=== PATIENT | male | born 1940 | race Caucasian/White ===

== ENCOUNTER → 2017-08-27 | Outpatient (CLI) | payer MEDICARE ==
[2017-08-27 13:10] LABS: Blood Urea Nitrogen 16 mg/dL (9-20); Non-African American GFR(MDRD) >60 (>60 ml/min/1.73 sqM)
--- NOTE | 2017-08-27 14:36 | CT ---
EXAMINATION TYPE: CT abdomen pelvis w con DATE OF EXAM: 08/27/2017 COMPARISON: CT abdomen pelvis June 10, 2014 HISTORY: Bladder CA CT DLP: 681.4 mGycm, Automated Exposure Control for Dose Reduction was Utilized. CONTRAST: CT scan of the abdomen and pelvis is performed with oral and with IV Contrast, patient injected with 100 mL of Omnipaque 300. FINDINGS: LUNG BASES: There is some patchy right basilar atelectasis and/or scarring in the base. Previously vi sualized left lower lobe 7 mm nodule is outside Field of view on today's study. LIVER/GB: Scattered hypodense lesions throughout the liver most prominent left hepatic lobe felt to r eflect simple cysts are stable. Contracted gallbladder noted. PANCREAS: No significant abnormality is seen. SPLEEN: No significant abnormality is seen. ADRENALS: No significant abnormality is seen. KIDNEYS: There is symmetric cortical medullary uptake and excretion from both kidneys without evidenc e of suspicious new solid or cystic mass. No hydronephrosis is seen bilaterally. Bladder is adequatel y distended, there is new areas of abnormal wall thickening, superior aspect measures 11 mm on bernabe l image 51, right aspect measures 8 mm in thickness on coronal image 54. BOWEL: There is stable small hiatal hernia. Oral contrast does not reach colonic level. There is no s uspicious small or large bowel dilatation seen. There is some prominence of fecal material in the cec um. PROSTATE/SEMINAL VESICLES: Prostate gland is surgically absent. Numerous clips in the pelvis are note d. A few scattered pelvic phleboliths are seen. LYMPH NODES: No greater than 1cm abdominal or pelvic lymph nodes are appreciated. OSSEOUS STRUCTURES: Underlying dextroconvex scoliosis is present. There is spurring and disc space na rrowing redemonstrated left L1-L2 levels metallic hardware from right proximal femur surgery is parti ally imaged through healed fracture. Some sclerosis along the iliac portion of bilateral sacroiliac j oints is redemonstrated. OTHER: No significant additional abnormality is seen. IMPRESSION: New mild eccentric wall thickening in adequately distended bladder in patient with neopla sm, recurrent neoplasm cannot be excluded. Advised direct visualization with cystoscopy follow-up.
== END ==
LOC: RADCTMAIN 12:27
PROVIDERS: ATTEND Urology
DX: D09.0 Carcinoma in situ of bladder (principal)
CPT/HCPCS: 82565; 84520; 74177; 36415; Q9967

== ENCOUNTER 2017-12-03 13:27 | Observation (INO) | payer MEDICARE, OTHER ==
[2017-12-03] MEDS ORDERED: hydrALAZINE HCL 20 MG/ML 1 ML VIAL IVP STA (13:59)
[2017-12-03] MEDS ORDERED: SODIUM CHLORIDE 0.9% 500 ML IV STA (14:11)
[2017-12-03] MEDS ORDERED: HEPARIN SODIUM,PORCINE 5,000 UNIT/ML 1 ML VIAL IV ONE (14:12)
[2017-12-03] MEDS ORDERED: HEPARIN SOD,PORK IN 0.45% NACL 25,000 UNIT in 0.45% NACL 1 500ML.BAG IV SCH (14:15)
--- NOTE | 2017-12-03 14:16 | ED ---
General Adult HPI - General Chief complaint: Recheck/Abnormal Lab/Rx Stated complaint: Irregular heartbeat Time Seen by Provider: 12/03/17 13:30 Source: patient, RN notes reviewed Mode of arrival: wheelchair Limitations: no limitations - History of Present Illness Initial comments: This is a 77 year old male who presents emergency Department because he was told today that he had atrial fibrillation. Patient states he was in to have some sort of procedure done at the surgical center and they told me is in A. fib. Patient states she's had no symptoms. Patient denies chest pain difficulty breathing. Patient denies any weakness or fatigue. Patient denies any shortness of breath or difficulty breathing. Patient denies any recent fever chills or cough. Patient denies any palpitations. Patient denies headache patient denies lightheadedness dizziness or near syncopal episode. Patient denies any abdominal pain patient denies nausea vomiting or diarrhea. He is extremely fit for his age. - Related Data Home Medications Medication Instructions Recorded Confirmed Aspirin 81 mg PO HS 12/03/17 12/03/17 Bisoprolol-Hctz 5-6.25 mg [Ziac 1 tab PO DAILY 12/03/17 12/03/17 5-6.25] Fish Oil/Dha/Epa [Fish Oil 1,200 1 cap PO DAILY 12/03/17 12/03/17 mg Fish Oil] Valsartan/Hydrochlorothiazide 1 tab PO HS 12/03/17 12/03/17 [Valsartan-Hctz 160-25 mg Tab] Allergies Allergy/AdvReac Type Severity Reaction Status Date / Time No Known Allergies Allergy Verified 12/03/17 13:56 Review of Systems ROS Statement: Those systems with pertinent positive or pertinent negative responses have been documented in the HPI. ROS Other: All systems not noted in ROS Statement are negative. Past Medical History Past Medical History: Hypertension History of Any Multi-Drug Resistant Organisms: None Reported Past Surgical History: Orthopedic Surgery, Prostate Surgery Past Psychological History: No Psychological Hx Reported Smoking Status: Former smoker Past Alcohol Use History: Daily General Exam - General Exam Comments Initial Comments: GENERAL: Patient is well-developed and well-nourished. Patient is nontoxic and well- hydrated and is in no acute distress. ENT: Neck is soft and supple. No significant lymphadenopathy is noted. Oropharynx is clear. Moist mucous membranes. Neck has full range of motion without eliciting any pain. EYES: The sclera were anicteric and conjunctiva were pink and moist. Extraocular movements were intact and pupils were equal round and reactive to light. Eyelids were unremarkable. PULMONARY: Unlabored respirations. Good breath sounds bilaterally. No audible rales rhonchi or wheezing was noted. CARDIOVASCULAR: Patient has an irregular heartbeat. ABDOMEN: Soft and nontender with normal bowel sounds. No palpable organomegaly was noted. There is no palpable pulsatile mass. SKIN: Skin is clear with no lesions or rashes and otherwise unremarkable. NEUROLOGIC: Patient is alert and oriented x3. Cranial nerves II through XII are grossly intact. Motor and sensory are also intact. Normal speech, volume and content. Symmetrical smile. MUSCULOSKELETAL: Normal extremities with adequate strength and full range of motion. No lower extremity swelling or edema. No calf tenderness. LYMPHATICS: No significant lymphadenopathy is noted PSYCHIATRIC: Normal psychiatric evaluation. Normal interpersonal interactions appears functionally intact in deals appropriately with others. No signs of depression. No signs of anxiety. Limitations: no limitations Course Vital Signs 12/03/17 12/03/17 12/03/17 13:30 14:33 15:33 Temperature 97.7 F Pulse Rate 91 74 67 Respiratory 18 18 18 Rate Blood Pressure 189/103 167/98 173/110 O2 Sat by Pulse 99 98 98 Oximetry Medical Decision Making - Medical Decision Making EKG shows atrial fibrillation 79 bpm QRS is 90 QT intervals 386 QTC is 442. There is no ST segment elevation or depression. Chest x-ray shows no acute abnormality - Lab Data Result diagrams: 12/03/17 14:32 12/03/17 14:32 Lab Results 12/03/17 12/03/17 12/03/17 Range/Units 14:32 14:32 14:32 WBC 7.7 (3.8-10.6) k/uL RBC 5.46 (4.30-5.90) m/uL Hgb 16.7 (13.0-17.5) gm/dL Hct 50.8 (39.0-53.0) % MCV 93.0 (80.0-100.0) fL MCH 30.7 (25.0-35.0) pg MCHC 33.0 (31.0-37.0) g/dL RDW 14.7 (11.5-15.5) % Plt Count 224 (150-450) k/uL Neutrophils % 68 % Lymphocytes % 18 % Monocytes % 7 % Eosinophils % 4 % Basophils % 1 % Neutrophils # 5.2 (1.3-7.7) k/uL Lymphocytes # 1.4 (1.0-4.8) k/uL Monocytes # 0.6 (0-1.0) k/uL Eosinophils # 0.3 (0-0.7) k/uL Basophils # 0.1 (0-0.2) k/uL PT (9.0-12.0) sec INR (<1.2) APTT (22.0-30.0) sec Sodium 133 L (137-145) mmol/L Potassium 3.9 (3.5-5.1) mmol/L Chloride 100 (98-107) mmol/L Carbon Dioxide 23 (22-30) mmol/L Anion Gap 10 mmol/L BUN 19 (9-20) mg/dL Creatinine 0.76 (0.66-1.25) mg/dL Est GFR (MDRD) Af Amer >60 (>60 ml/min/1.73 sqM) Est GFR (MDRD) Non-Af >60 (>60 ml/min/1.73 sqM) Glucose 121 H (74-99) mg/dL Calcium 9.8 (8.4-10.2) mg/dL Magnesium 2.0 (1.6-2.3) mg/dL Total Bilirubin 1.1 (0.2-1.3) mg/dL AST 33 (17-59) U/L ALT 39 (21-72) U/L Alkaline Phosphatase 75 (38-126) U/L Total Creatine Kinase 210 H (55-170) U/L CK-MB (CK-2) 6.4 H* (0.0-2.4) ng/mL CK-MB (CK-2) Rel Index 3.0 Troponin I <0.012 (0.000-0.034) ng/mL Total Protein 7.1 (6.3-8.2) g/dL Albumin 4.2 (3.5-5.0) g/dL TSH 1.840 (0.465-4.680) mIU/L Free T4 1.05 (0.78-2.19) ng/dL Urine Opiates Screen (NotDetected) Ur Oxycodone Screen (NotDetected) Urine Methadone Screen (NotDetected) Ur Propoxyphene Screen (NotDetected) Ur Barbiturates Screen (NotDetected) U Tricyclic Antidepress (NotDetected) Ur Phencyclidine Scrn (NotDetected) Ur Amphetamines Screen (NotDetected) U Methamphetamines Scrn (NotDetected) U Benzodiazepines Scrn (NotDetected) Urine Cocaine Screen (NotDetected) U Marijuana (THC) Screen (NotDetected) 12/03/17 12/03/17 Range/Units 14:32 15:40 WBC (3.8-10.6) k/uL RBC (4.30-5.90) m/uL Hgb (13.0-17.5) gm/dL Hct (39.0-53.0) % MCV (80.0-100.0) fL MCH (25.0-35.0) pg MCHC (31.0-37.0) g/dL RDW (11.5-15.5) % Plt Count (150-450) k/uL Neutrophils % % Lymphocytes % % Monocytes % % Eosinophils % % Basophils % % Neutrophils # (1.3-7.7) k/uL Lymphocytes # (1.0-4.8) k/uL Monocytes # (0-1.0) k/uL Eosinophils # (0-0.7) k/uL Basophils # (0-0.2) k/uL PT 11.6 (9.0-12.0) sec INR 1.2 H (<1.2) APTT 25.4 (22.0-30.0) sec Sodium (137-145) mmol/L Potassium (3.5-5.1) mmol/L Chloride (98-107) mmol/L Carbon Dioxide (22-30) mmol/L Anion Gap mmol/L BUN (9-20) mg/dL Creatinine (0.66-1.25) mg/dL Est GFR (MDRD) Af Amer (>60 ml/min/1.73 sqM) Est GFR (MDRD) Non-Af (>60 ml/min/1.73 sqM) Glucose (74-99) mg/dL Calcium (8.4-10.2) mg/dL Magnesium (1.6-2.3) mg/dL Total Bilirubin (0.2-1.3) mg/dL AST (17-59) U/L ALT (21-72) U/L Alkaline Phosphatase (38-126) U/L Total Creatine Kinase (55-170) U/L CK-MB (CK-2) (0.0-2.4) ng/mL CK-MB (CK-2) Rel Index Troponin I (0.000-0.034) ng/mL Total Protein (6.3-8.2) g/dL Albumin (3.5-5.0) g/dL TSH (0.465-4.680) mIU/L Free T4 (0.78-2.19) ng/dL Urine Opiates Screen Not Detected (NotDetected) Ur Oxycodone Screen Not Detected (NotDetected) Urine Methadone Screen Not Detected (NotDetected) Ur Propoxyphene Screen Not Detected (NotDetected) Ur Barbiturates Screen Not Detected (NotDetected) U Tricyclic Antidepress Not Detected (NotDetected) Ur Phencyclidine Scrn Not Detected (NotDetected) Ur Amphetamines Screen Not Detected (NotDetected) U Methamphetamines Scrn Not Detected (NotDetected) U Benzodiazepines Scrn Not Detected (NotDetected) Urine Cocaine Screen Not Detected (NotDetected) U Marijuana (THC) Screen Not Detected (NotDetected) Disposition Clinical Impression: Hyponatremia, New onset atrial fibrillation Disposition: ADMITTED IP TO THIS HOSP Referrals: Saritha Hickman DO [Primary Care Provider] - 1-2 days Time of Disposition: 16:33
[2017-12-03 14:46] LABS: Basophils # (A) 0.1 k/uL (0-0.2); Basophils % (A) 1 %; Eosinophils # (A) 0.3 k/uL (0-0.7); Eosinophils % (A) 4 %; HCT 50.8 % (39.0-53.0); HGB 16.7 gm/dL (13.0-17.5); Lymphocytes # (A) 1.4 k/uL (1.0-4.8); Lymphocytes % (A) 18 %; MCH 30.7 pg (25.0-35.0); Mean Platelet Volume 7.1; Monocytes # (A) 0.6 k/uL (0-1.0); Monocytes % (A) 7 %; Neutrophils # (A) 5.2 k/uL (1.3-7.7); Neutrophils % (A) 68 %; Platelet Count 224 k/uL (150-450); RBC 5.46 m/uL (4.30-5.90); RDW 14.7 % (11.5-15.5); WBC 7.7 k/uL (3.8-10.6)
[2017-12-03 14:54] LABS: ALT 39 U/L (21-72); AST 33 U/L (17-59); Albumin 4.2 g/dL (3.5-5.0); Alkaline Phosphatase 75 U/L (38-126); Anion Gap 10 mmol/L; Blood Urea Nitrogen 19 mg/dL (9-20); Calcium 9.8 mg/dL (8.4-10.2); Carbon Dioxide 23 mmol/L (22-30); Chloride 100 mmol/L (98-107); Glucose 121 mg/dL (74-99); Potassium 3.9 mmol/L (3.5-5.1); Sodium 133 mmol/L (137-145); Total Bilirubin 1.1 mg/dL (0.2-1.3); Total Protein 7.1 g/dL (6.3-8.2)
[2017-12-03 15:03] LABS: INR 1.2 (<1.2); Partial Thromboplastin Time 25.4 sec (22.0-30.0); Prothrombin Time 11.6 sec (9.0-12.0)
[2017-12-03 15:04] LABS: Creatine Kinase 210 U/L (55-170)
[2017-12-03 15:09] LABS: T4, Free (Free Thyroxine) 1.05 ng/dL (0.78-2.19)
[2017-12-03 15:17] LABS: Troponin I <0.012 ng/mL (0.000-0.034)
[2017-12-03 15:18] LABS: Creatine Kinase MB 6.4 ng/mL (0.0-2.4)
--- NOTE | 2017-12-03 15:24 | XR ---
EXAMINATION TYPE: XR chest 2V DATE OF EXAM: 12/03/2017 COMPARISON: NONE HISTORY: Shortness of breath TECHNIQUE: Frontal and lateral views of the chest are obtained. FINDINGS: Scattered senescent parenchymal changes noted. Hyperinflation compatible with COPD. No evidence for infiltrate. No evidence for atelectasis. Heart size is stable. Mediastinal structures are stable and grossly unremarkable. No evidence for hilar prominence. Degenerative changes dorsal spine. IMPRESSION: 1. No evidence for acute pulmonary disease.
[2017-12-03 16:23] LABS: Amphetamine Screen,Urine Not Detected (NotDetected); Barbiturate Screen,Urine Not Detected (NotDetected); Benzodiazepines Screen,Urine Not Detected (NotDetected); Cocaine Screen,Urine Not Detected (NotDetected); Methadone Screen, Urine Not Detected (NotDetected); Opiate Screen,Urine Not Detected (NotDetected); Oxycodone Screen, Urine Not Detected (NotDetected); Phencyclidine Screen,Urine Not Detected (NotDetected); Tricyclic Antidepressant,Urine Not Detected (NotDetected); Urn Cannabinoid Scrn Not Detected (NotDetected)
[2017-12-03] MEDS ORDERED: NITROGLYCERIN SL TABS 0.4 MG TAB SUBLINGUAL PRN (16:33)
[2017-12-03] MEDS ORDERED: TEMAZEPAM 15 MG CAP PO PRN (18:18)
[2017-12-03] MEDS ORDERED: ALPRAZolam 0.25 MG TAB PO PRN (18:18)
[2017-12-03] MEDS ORDERED: HYDROcodone/APAP 5-325MG 1 EACH TAB PO PRN (18:18)
[2017-12-03] MEDS ORDERED: VALSARTAN 160 MG TAB PO SCH (21:00)
[2017-12-03] MEDS ORDERED: HYDROCHLOROTHIAZIDE 25 MG TAB PO SCH (21:00)
[2017-12-03 21:27] LABS: Creatine Kinase 149 U/L (55-170)
[2017-12-03 21:41] LABS: Troponin I <0.012 ng/mL (0.000-0.034)
[2017-12-03 21:44] LABS: Creatine Kinase MB 4.6 ng/mL (0.0-2.4)
--- NOTE | 2017-12-03 23:13 | HP ---
HISTORY AND PHYSICAL CHIEF COMPLAINT: Atrial fibrillation. HISTORY OF PRESENT ILLNESS: This 77-year-old gentleman with a past medical history of hypertension, history of DJD, history of cholecystectomy being followed by Dr. Hickman as an outpatient apparently had a surgical procedure, including cystoscopy, today in the [facility]. During the preop anesthesia, noted that the patient was in atrial fibrillation and the patient was directed to [facility] for evaluation and treatment. There is no history of any fever, rigors. No history of headache, loss of consciousness. The patient also found to have mild hyponatremia with sodium 133 and the patient admitted for new onset atrial fibrillation at this time. The patient was started on IV heparin. There is no history of any fever, rigors. No history of headache, loss of consciousness, seizures at this time. PAST MEDICAL HISTORY: History of hypertension, history of DJD, history of prostate surgery. MEDICATIONS: 1. Valsartan-hydrochlorothiazide 1 tab q.h.s. 2. Fish oil 1 p.o. daily. 4. Aspirin 81 mg daily. ALLERGIES: None. FAMILY HISTORY: No history of heart disease, strokes in family. SOCIAL HISTORY: Previous history of smoking. Daily alcohol intake. REVIEW OF SYSTEMS: ENT: No diminished hearing, diminished vision. CARDIOVASCULAR: As mentioned earlier. RESPIRATION: No cough, hemoptysis. GI: No nausea, vomiting. : No dysuria. NERVOUS SYSTEM: No numbness or weakness. ALLERGY/IMMUNOLOGY: No asthma or hay fever. MUSCULOSKELETAL: As mentioned earlier. HEMATOLOGY/ONCOLOGY: No history of anemia. ENDOCRINE: No history of diabetes, hypothyroidism. CONSTITUTIONAL: As mentioned earlier. DERMATOLOGY: Negative. RHEUMATOLOGY: Negative. PSYCHIATRY: As mentioned earlier. PHYSICAL EXAMINATION: Patient alert and oriented x3. Pulse 75, blood pressure 160/107, respirations 16, temperature 97.2, pulse ox 98% room air. HEENT: Conjunctivae normal. Oral mucosa moist. NECK: No jugular venous distention. No carotid bruits. No lymph node enlargement. CARDIOVASCULAR: S1, S2 muffled. No S3. No S4. RESPIRATORY: Breath sounds diminished in the bases. A few scattered rhonchi. No crackles. ABDOMEN: Soft, nontender. No mass palpable. LEGS: No edema. No swelling. NERVOUS SYSTEM: Higher functions as mentioned earlier. Moves all 4 limbs. No focal deficits. LYMPHATIC: No lymphadenopathy in neck or axillae. SKIN: No ulcer, rash or bleeding. LABS: CBC within normal limits. Sodium 133 and glucose 121. ASSESSMENT: 1. Atrial ablation, new onset, rate controlled. 2. Hypertension. 3. Degenerative joint disease. 4. History of prostate surgery. 5. Hyponatremia. RECOMMENDATIONS AND DISCUSSION: In this 77-year-old gentleman who presented with multiple complex medical issues , will monitor the patient closely. Continue with the current medical management and symptomatic treatment. Will obtain 2D echo with Doppler. Otherwise, I would also get cardiology consultation, continue the heparin. Will monitor the patient closely. Further recommendations to follow. Prognosis guarded. Repeat labs are ordered. A copy will be forwarded to Dr. Hickman, who is the primary physician. STEPHANIEL / SOCRATESN: [id number] / MTDHu
[2017-12-03] MEDS ORDERED: HEPARIN SODIUM,PORCINE 5,000 UNIT/ML 1 ML VIAL IV PRN (23:53)
[2017-12-04 03:03] LABS: Creatine Kinase 134 U/L (55-170)
[2017-12-04 03:16] LABS: Troponin I <0.012 ng/mL (0.000-0.034)
[2017-12-04 03:55] LABS: Creatine Kinase MB 3.9 ng/mL (0.0-2.4)
[2017-12-04 06:19] LABS: Basophils # (A) 0.1 k/uL (0-0.2); Basophils % (A) 1 %; Eosinophils # (A) 0.3 k/uL (0-0.7); Eosinophils % (A) 4 %; HCT 50.2 % (39.0-53.0); HGB 16.2 gm/dL (13.0-17.5); Lymphocytes # (A) 1.8 k/uL (1.0-4.8); Lymphocytes % (A) 26 %; MCH 30.5 pg (25.0-35.0); MCHC 32.3 g/dL (31.0-37.0); MCV 94.6 fL (80.0-100.0); Mean Platelet Volume 7.2; Monocytes # (A) 0.6 k/uL (0-1.0); Monocytes % (A) 8 %; Neutrophils # (A) 4.1 k/uL (1.3-7.7); Neutrophils % (A) 58 %; Platelet Count 218 k/uL (150-450); RBC 5.31 m/uL (4.30-5.90); RDW 14.9 % (11.5-15.5)
[2017-12-04 06:30] LABS: Anion Gap 8 mmol/L; Blood Urea Nitrogen 19 mg/dL (9-20); Calcium 9.3 mg/dL (8.4-10.2); Carbon Dioxide 25 mmol/L (22-30); Chloride 100 mmol/L (98-107); Cholesterol 209 mg/dL (<200); Glucose 112 mg/dL (74-99); HDL Cholesterol 92 mg/dL (40-60); LDL Cholesterol,Calculated 107 mg/dL (0-99); Potassium 3.7 mmol/L (3.5-5.1); Sodium 133 mmol/L (137-145); Triglycerides 52 mg/dL (<150)
[2017-12-04] MEDS ORDERED: PANTOPRAZOLE 40 MG TABLET PO SCH (07:30)
[2017-12-04] MEDS ORDERED: ASPIRIN 325 MG TAB PO SCH (09:00)
[2017-12-04] MEDS ORDERED: BISOPROLOL-HCTZ 5-6.25 MG 1 EACH TAB PO SCH ×2 (09:00)
[2017-12-04] MEDS ORDERED: NON-FORMULARY DRUG (Fish Oil/Dha/Epa [Fish Oil 1,200 Mg Fish Oil] 1 CAP) PO SCH (09:00)
--- NOTE | 2017-12-04 09:05 | P.CRDCN ---
History of Present Illness Consult date: 12/04/17 Requesting physician: Felice Barney Consult reason: atrial fibrillation Chief complaint: Atrial fibrillation History of present illness: This is a pleasant 77 her own gentleman with history of hypertension, patient was also found in October of this year to have some malignant cells for under which he had uroscopy with scraping subsequent therapy. He is followed closely with Dr. Hernandez. According to the patient, yesterday he was scheduled to have a uroscopy performed as a follow-up to his recent treatment. Patient was undergoing blood pressure and rhythm assessment prior to the procedure, he was found to be quite hypertensive, EKG also showed atrial fibrillation. For this reason he was recommended to come to the hospital for admission. Patient is very physically active, he walks several miles a day, and renovates houses. He states that he does not feel any palpitations, he denies any chest discomfort, no shortness of breath, no dizziness or lightheadedness. Patient denies any history of hyperlipidemia, no diabetes, he is a nonsmoker. He states he drinks 2 beers a day EKG on arrival here showed atrial fibrillation with a controlled ventricular response. Chest x-ray did not reveal any evidence for acute pulmonary disease. Blood pressure on arrival here 189/103, heart rate in the 90s, 99% on room air. Blood pressure this morning 157/104, heart rate in the 80s, temperature 97.6. CBC normal, sodium 133, potassium 3.7, BUN 19, creatinine 0.9. Troponins have been negative 3. [id number], LDL 107, HDL 92, triglycerides 52. TSH level is normal. At the time of my examination this morning, he continues to be in atrial fibrillation, his rate is under adequate control, he is asymptomatic. We will obtain an echocardiogram with Doppler study. We will also check to see if the patient has coverage for one of the newer anticoagulants. Past Medical History Past Medical History: Hypertension History of Any Multi-Drug Resistant Organisms: None Reported Past Surgical History: Orthopedic Surgery, Prostate Surgery Past Psychological History: No Psychological Hx Reported Smoking Status: Former smoker Past Alcohol Use History: Daily Medications and Allergies Home Medications Medication Instructions Recorded Confirmed Type Aspirin 81 mg PO HS 12/03/17 12/03/17 History Bisoprolol-Hctz 5-6.25 mg [Ziac 1 tab PO DAILY 12/03/17 12/03/17 History 5-6.25] Fish Oil/Dha/Epa [Fish Oil 1,200 1 cap PO DAILY 12/03/17 12/03/17 History mg Fish Oil] Valsartan/Hydrochlorothiazide 1 tab PO HS 12/03/17 12/03/17 History [Valsartan-Hctz 160-25 mg Tab] Allergies Allergy/AdvReac Type Severity Reaction Status Date / Time No Known Allergies Allergy Verified 12/03/17 13:56 Physical Exam Vitals: Vital Signs Temp Pulse Pulse Resp BP BP Pulse Ox 12/04/17 08:00 97.6 F 80 16 157/104 98 12/04/17 07:58 84 20 12/04/17 04:00 96.4 F L 84 20 129/91 98 12/04/17 00:00 96.3 F L 76 20 153/97 98 12/03/17 20:00 97.7 F 80 20 143/90 98 12/03/17 18:21 97.6 F 75 16 163/107 98 12/03/17 18:19 75 18 12/03/17 18:07 97.8 F 87 18 154/98 12/03/17 17:33 97.6 F 75 16 163/107 98 12/03/17 16:33 74 18 158/115 98 12/03/17 15:33 67 18 173/110 98 12/03/17 14:33 74 18 167/98 98 12/03/17 13:30 97.7 F 91 18 189/103 99 Intake and Output 12/03/17 12/04/17 12/04/17 22:59 06:59 14:59 Intake Total 180 273.619 635.253 Output Total 0 300 Balance 180 273.619 335.253 Intake: IV 240 .9 @ 20 240 Intake, IV Titration 273.619 155.253 Amount Heparin Sod,Pork in 0.45% 173.619 155.253 NaCl 25,000 unit In 0.45 % NaCl 1 500ml.bag @ 12 UNITS/KG/HR 18.18 mls/hr IV .Q24H JACQUELINE Rx#: [id number] Sodium Chloride 0.9% 500 100 ml @ 999 mls/hr IV .Q31M STA Rx#:[id number] Oral 180 240 Output: Urine 0 300 Other: Voiding Method Toilet Toilet Toilet # Voids 1 1 Weight 75.75 kg 76.9 kg PHYSICAL EXAMINATION: HEENT: Head is atraumatic, normocephalic. Pupils equal, round. Neck is supple. There is no elevated jugular venous pressure. HEART EXAMINATION: Heart S1 and S2 irregularly irregular CHEST EXAMINATION: Lungs are clear to auscultation and precussion. No chest wall tenderness is noted on palpation or with deep breathing. ABDOMEN: Soft, nontender. Bowel sounds are heard. No organomegaly noted. EXTREMITIES: 2+ peripheral pulses with no evidence of peripheral edema and no calf tenderness noted. NEUROLOGIC patient is awake, alert and oriented -3. . Results 12/04/17 05:26 12/04/17 05:26 Cardiac Enzymes 12/03/17 12/03/17 12/03/17 Range/Units 14:32 14:32 20:50 AST 33 (17-59) U/L CK-MB (CK-2) 6.4 H* 4.6 H* (0.0-2.4) ng/mL Troponin I <0.012 <0.012 (0.000-0.034) ng/mL 12/04/17 Range/Units 02:11 AST (17-59) U/L CK-MB (CK-2) 3.9 H* (0.0-2.4) ng/mL Troponin I <0.012 (0.000-0.034) ng/mL Coagulation 12/03/17 12/03/17 12/04/17 Range/Units 14:32 23:00 05:26 PT 11.6 (9.0-12.0) sec APTT 25.4 30.1 H 43.8 H (22.0-30.0) sec Lipids 12/04/17 Range/Units 05:26 Triglycerides 52 (<150) mg/dL Cholesterol 209 H (<200) mg/dL HDL Cholesterol 92 H (40-60) mg/dL CBC 12/03/17 12/04/17 Range/Units 14:32 05:26 WBC 7.7 7.0 (3.8-10.6) k/uL RBC 5.46 5.31 (4.30-5.90) m/uL Hgb 16.7 16.2 (13.0-17.5) gm/dL Hct 50.8 50.2 (39.0-53.0) % Plt Count 224 218 (150-450) k/uL Comprehensive Metabolic Panel 12/03/17 12/04/17 Range/Units 14:32 05:26 Sodium 133 L 133 L (137-145) mmol/L Potassium 3.9 3.7 (3.5-5.1) mmol/L Chloride 100 100 (98-107) mmol/L Carbon Dioxide 23 25 (22-30) mmol/L BUN 19 19 (9-20) mg/dL Creatinine 0.76 0.90 (0.66-1.25) mg/dL Glucose 121 H 112 H (74-99) mg/dL Calcium 9.8 9.3 (8.4-10.2) mg/dL AST 33 (17-59) U/L ALT 39 (21-72) U/L Alkaline Phosphatase 75 (38-126) U/L Total Protein 7.1 (6.3-8.2) g/dL Albumin 4.2 (3.5-5.0) g/dL Current Medications Generic Name Dose Route Start Last Admin Trade Name Freq PRN Reason Stop Dose Admin Hydrocodone Bitart/Acetaminophen 1 each 12/03/17 18:18 [place] 5-325 PO Q6HR PRN Pain Alprazolam 0.25 mg 12/03/17 18:18 Xanax PO TID PRN Anxiety Aspirin 325 mg 12/04/17 09:00 12/04/17 08:03 Aspirin PO 325 mg DAILY JACQUELINE Administration Bisoprolol Fumarate 1 each 12/04/17 09:00 12/04/17 08:02 Ziac 5-6.25 PO 1 each DAILY JACQUELINE Administration Heparin Sodium (Porcine) 0 unit 12/03/17 23:53 12/04/17 00:26 Heparin IV 3,800 unit PER PROTOCOL PRN Administration Low PTT Protocol Hydrochlorothiazide 25 mg 12/03/17 21:00 12/03/17 20:35 Hydrodiuril PO 25 mg HS JACQUELINE Administration Heparin Sodium/Sodium Chloride 500 mls @ 18.18 mls/hr 12/03/17 14:15 07:13 25,000 unit/ Sodium Chloride IV 17 units/kg/hr .Q24H JACQUELINE 25.75 mls/hr Protocol Titration 12 UNITS/KG/HR Nitroglycerin 0.4 mg 12/03/17 16:33 Nitrostat SUBLINGUAL Q5M PRN Chest Pain Pantoprazole Sodium 40 mg 12/04/17 07:30 12/04/17 06:22 Protonix PO 40 mg [id number] JACQUELINE Administration Temazepam 15 mg 12/03/17 18:18 Restoril PO HS PRN Insomnia Valsartan 160 mg 12/03/17 21:00 12/03/17 20:35 Diovan PO 160 mg HS JACQUELINE Administration Intake and Output 12/03/17 12/04/17 12/04/17 22:59 06:59 14:59 Intake Total 180 273.619 635.253 Output Total 0 300 Balance 180 273.619 335.253 Intake: IV 240 .9 @ 20 240 Intake, IV Titration 273.619 155.253 Amount Heparin Sod,Pork in 0.45% 173.619 155.253 NaCl 25,000 unit In 0.45 % NaCl 1 500ml.bag @ 12 UNITS/KG/HR 18.18 mls/hr IV .Q24H JACQUELINE Rx#: [id number] Sodium Chloride 0.9% 500 100 ml @ 999 mls/hr IV .Q31M STA Rx#:[id number] Oral 180 240 Output: Urine 0 300 Other: Voiding Method Toilet Toilet Toilet # Voids 1 1 Weight 75.75 kg 76.9 kg 12/04/17 05:26 12/04/17 05:26 EKG Interpretations (text) EKG shows atrial fibrillation with a controlled ventricular response Assessment and Plan Plan: Assessment and plan #1 atrial fibrillation with controlled ventricular response, new onset for the patient. TSH normal. #2 hypertension, accelerated #3 cardiac risk factors negative for diabetes, hyperlipidemia, patient is a nonsmoker. #4 history of bladder malignancy treated with BCG, mitomycin, and TUR resection #5 history of prostate cancer status post radical prostatectomy Plan Will obtain an echocardiogram with Doppler study. Continue IV heparin. Increase Ziac to 2 tablets daily for more optimal blood pressure control. We will also check to see if the patient has coverage for one of the newer anticoagulants. Further recommendations to follow. DNP note has been reviewed, I agree with a documented findings and plan of care. Patient was seen and examined.
[2017-12-04] MEDS ORDERED: BISOPROLOL-HCTZ 5-6.25 MG 1 EACH TAB PO ONE (09:15)
--- NOTE | 2017-12-04 12:15 | ECHOF ---
Referral Reason:afib MEASUREMENTS -------- HEIGHT: 182.9 cm WEIGHT: 76.7 kg BP: 129/91 IVSd: 1.3 cm (0.6 - 1.1) LVIDd: 3.5 cm (3.9 - 5.3) LVPWd: 1.5 cm (0.6 - 1.1) IVSs: 2.0 cm LVIDs: 2.5 cm LVPWs: 2.0 cm LAESV Index (A-L): 34.39 ml/m Ao Diam: 2.6 cm (2.0 - 3.7) AV Cusp: 0.9 cm (1.5 - 2.6) LA Diam: 3.0 cm (2.7 - 3.8) MV EXCURSION: 10.629 mm (> 18.000) MV EF SLOPE: 64 mm/s (70 - 150) EPSS: 0.5 cm AV maxP.90 mmHg AV meanP.90 mmHg AR PHT: 523 ms RAP: 5.00 mmHg RVSP: 16.50 mmHg FINDINGS -------- Atrial fibrillation. This was a technically good study. The left ventricular size is normal. There is moderate concentric left ventricular hypertrophy. O verall left ventricular systolic function is normal with, an EF between 55 - 60 %. The right ventricle is normal in size and function. LA is moderately dilated 34-39 ml/m2 The right atrium is normal in size. Aortic valve is trileaflet and is severely thickened. Trace amount of aortic regurgitation. Ther e is moderate aortic stenosis present. Peak/mean gradient across the Aortic Valve is 25.90mmHg / 15 .90mmHg. Mild mitral regurgitation is present. Mild tricuspid regurgitation present. The right ventricular systolic pressure, as measured by Doppl er, is 16.50mmHg. Pulmonic valve appears structurally normal. The aortic root size is normal. Normal inferior vena cava with normal inspiratory collapse consistent with estimated right atrial pre ssure of 5 mmHg. The pericardium is normal. CONCLUSIONS -------- 1. Atrial fibrillation. 2. This was a technically good study. 3. The left ventricular size is normal. 4. There is moderate concentric left ventricular hypertrophy. 5. Overall left ventricular systolic function is normal with, an EF between 55 - 60 %. 6. The right ventricle is normal in size and function. 7. LA is moderately dilated 34-39 ml/m2 8. The right atrium is normal in size. 9. Aortic valve is trileaflet and is severely thickened. 10. Trace amount of aortic regurgitation. 11. There is moderate aortic stenosis present. 12. Peak/mean gradient across the Aortic Valve is 25.90mmHg / 15.90mmHg. 13. Mild mitral regurgitation is present. 14. Mild tricuspid regurgitation present. 15. The right ventricular systolic pressure, as measured by Doppler, is 16.50mmHg. 16. Pulmonic valve appears structurally normal. 17. The aortic root size is normal. 18. Normal inferior vena cava with normal inspiratory collapse consistent with estimated right atrial pressure of 5 mmHg. 19. The pericardium is normal. ELECTRICIAN SUPERVISOR: Joselyn Ulloa RDCS
[2017-12-04] MEDS ORDERED: APIXABAN 5 MG TAB PO SCH (14:15)
[2017-12-04] MEDS ORDERED: ATORVASTATIN 10 MG TAB PO SCH (21:00)
[2017-12-04 23:05] VITALS: BP 131/93; PULSE 80; RESP 16; TEMP 97
[2017-12-04 23:11] VITALS: BMI 23.9
--- NOTE | 2017-12-05 08:21 | DS ---
DISCHARGE SUMMARY DATE OF SERVICE: 12/04/2017. FINAL DIAGNOSES: 1. Atrial fibrillation new onset,. rate controlled. 2. Accelerated hypertension. 3. Degenerative joint disease. 4. History of prostate surgery. 5. Hyponatremia. DISCHARGE DISPOSITION: The patient will be discharged in a stable condition with guarded prognosis. HISTORY OF PRESENT ILLNESS: This is a 77-year-old gentleman with a past medical history of multiple medical problems is being following by Dr. Hickman in the outpatient setting, admitted with atrial fibrillation which did occur preoperatively prior to a cystoscopy procedure. The patient was treated symptomatically. Eliquis was initiated. Patient improving significantly. Cardiology saw the patient. On exam, vitals are stable. CARDIOVASCULAR SYSTEM: Irregular. RESPIRATORY: Clear to auscultation. ABDOMEN: Soft. NERVOUS SYSTEM: No focal deficits. Discharge diet is cardiac. Activity limited until followup. Follow up with Dr. Hickman in 2 to 3 days. Follow up with Cardiology, Dr. More as advised. MEDICATIONS: Will be: 1. Eliquis 5 mg p.o. b.i.d. 2. Aspirin 81 mg q.h.s. 3. Lipitor 10 mg q.h.s. 4. Bisoprolol-hydrochlorothiazide 5/6.25 mg 2 tablets daily. 5. Fish oil 1 p.o. daily. 6. Protonix 40 mg daily. 7. Valsartan-hydrochlorothiazide 1 tablet q.h.s. Once again, the patient will be discharged in a stable condition with a guarded prognosis. MMODL / IJN: [id number] /
[2017-12-05] MEDS ORDERED: ASPIRIN 81 MG PO SCH (09:00)
[2017-12-05] MEDS ORDERED: BISOPROLOL-HCTZ 5-6.25 MG 1 EACH TAB PO SCH (09:00)
== END 2017-12-04 15:00 | disposition home or self-care (01) ==
LOC: EC 13:27 → 6SEL 16:33
PROVIDERS: ADMIT Internal Medicine; ATTEND Internal Medicine
DX: I48.91 Unspecified atrial fibrillation (principal); I10 Essential (primary) hypertension; M19.90 Unspecified osteoarthritis, unspecified site; Z85.46 Personal history of malignant neoplasm of prostate; E87.1 Hypo-osmolality and hyponatremia; Z79.82 Long term (current) use of aspirin; Z79.899 Other long term (current) drug therapy; Z85.51 Personal history of malignant neoplasm of bladder; Z87.891 Personal history of nicotine dependence; Z90.49 Acquired absence of other specified parts of digestive tract
CPT/HCPCS: 96366 ×6; 96376 ×3; 96375 ×2; 96365; 99285; 36415; 93306; 84439; 80061; 80053; 80048; 82550 ×2; 82553 ×2; 83735; 84443; 84484 ×2; 85025 ×2; 85610; 85730 ×2; 80306; 71046; G0378 ×2; J0360; J1644 ×3; 93005

== ENCOUNTER → 2019-08-14 | Outpatient (CLI) | payer MEDICARE, OTHER ==
--- NOTE | 2019-08-14 14:41 | US ---
EXAMINATION TYPE: US kidneys/renal and bladder DATE OF EXAM: 08/14/2019 COMPARISON: CT 2017 CLINICAL HISTORY: D49.4 Neoplasm of unspecified behavior of bladder. EXAM MEASUREMENTS: Right Kidney: 12.1 x 4.4 x 5.2 cm Left Kidney: 10.7 x 6.1 x 6.5 cm Right Kidney: No hydronephrosis or masses seen Left Kidney: Mid pole probable represents dromedary hump. Bladder: wnl Bilateral Jets seen: Yes There is no evidence for hydronephrosis at this point in time. No nephrolithiasis is seen. No diana s are identified. The urinary bladder is anechoic. Bilateral ureteral jets are seen. IMPRESSION: No focal bladder masses seen in this patient with a history of bladder cancer. No hydrone phrosis or nephrolithiasis of either kidney.
== END | disposition home or self-care (01) ==
LOC: RADUSWWP 13:41
PROVIDERS: ATTEND Urology
DX: D49.4 Neoplasm of unspecified behavior of bladder (principal)
CPT/HCPCS: 76770

== ENCOUNTER → 2019-09-08 | Outpatient (CLI) | payer MEDICARE, OTHER ==
--- NOTE | 2019-09-09 11:33 | ECHOF ---
Referral Reason:I27.22 left venticular hypertrophy MEASUREMENTS -------- HEIGHT: 180.3 cm WEIGHT: 72.6 kg BP: 206/112 RVIDd: 3.5 cm (< 3.3) IVSd: 1.5 cm (0.6 - 1.1) LVIDd: 4.7 cm (3.9 - 5.3) LVPWd: 1.6 cm (0.6 - 1.1) IVSs: 2.0 cm LVIDs: 3.5 cm LVPWs: 2.1 cm LA Diam: 3.7 cm (2.7 - 3.8) LAESV Index (A-L): 46.28 ml/m Ao Diam: 3.7 cm (2.0 - 3.7) AV Cusp: 1.5 cm (1.5 - 2.6) TAPSE: 1.7 cm EPSS: 1.3 cm AV maxP.17 mmHg AV meanP.14 mmHg AR PHT: 600 ms RAP: 5.00 mmHg RVSP: 35.12 mmHg MV EF SLOPE: 50.50 mm/s (70 - 150) MV EXCURSION: 1.41 cm (> 18.000) FINDINGS -------- Atrial fibrillation. This was a technically good study. The left ventricular size is normal. There is moderate concentric left ventricular hypertrophy. O verall left ventricular systolic function is mildly impaired with, an EF between 45 - 50 %. The right ventricle is mildly enlarged. LA is severely dilated >40 ml/m2 The right atrium is normal in size. Interatrial and interventricular septum intact. There is moderate aortic valve sclerosis. There is [id number] aortic regurgitation. There i s mild aortic stenosis present. Peak/mean gradient across the Aortic Valve is 36.17mmHg / 19.14mmHg . The mitral valve leaflets are mildly thickened. Mild mitral annular calcification present. Mild m itral regurgitation is present. Mild tricuspid regurgitation present. There is mild pulmonary hypertension. The right ventricular systolic pressure, as measured by Doppler, is 35.12mmHg. The pulmonic valve was not well visualized. The aortic root size is normal. Normal inferior vena cava with normal inspiratory collapse consistent with estimated right atrial pre ssure of 5 mmHg. There is no pericardial effusion. CONCLUSIONS -------- 1. Atrial fibrillation. 2. This was a technically good study. 3. The left ventricular size is normal. 4. There is moderate concentric left ventricular hypertrophy. 5. Overall left ventricular systolic function is mildly impaired with, an EF between 45 - 50 %. 6. The right ventricle is mildly enlarged. 7. LA is severely dilated >40 ml/m2 8. The right atrium is normal in size. 9. Interatrial and interventricular septum intact. 10. There is moderate aortic valve sclerosis. 11. There is [id number] aortic regurgitation. 12. There is mild aortic stenosis present. 13. Peak/mean gradient across the Aortic Valve is 36.17mmHg / 19.14mmHg. 14. The mitral valve leaflets are mildly thickened. 15. Mild mitral annular calcification present. 16. Mild mitral regurgitation is present. 17. Mild tricuspid regurgitation present. 18. There is mild pulmonary hypertension. 19. The right ventricular systolic pressure, as measured by Doppler, is 35.12mmHg. 20. The pulmonic valve was not well visualized. 21. The aortic root size is normal. 22. Normal inferior vena cava with normal inspiratory collapse consistent with estimated right atrial pressure of 5 mmHg. 23. There is no pericardial effusion. [employer]IGINAL: CANDACE Miguel
== END | disposition home or self-care (01) ==
LOC: RADECHMAIN 12:31
PROVIDERS: ATTEND Family Medicine
DX: I48.91 Unspecified atrial fibrillation (principal); I35.0 Nonrheumatic aortic (valve) stenosis; I05.8 Other rheumatic mitral valve diseases; I27.20 Pulmonary hypertension, unspecified
CPT/HCPCS: 93306

== ENCOUNTER → 2020-06-14 | Outpatient (CLI) | payer MEDICARE, OTHER ==
--- NOTE | 2020-06-14 08:58 | US ---
EXAMINATION TYPE: US kidneys/renal and bladder DATE OF EXAM: 06/14/2020 COMPARISON: US 2019 CLINICAL HISTORY: D49.4 BLADDER CA. History of bladder CA EXAM MEASUREMENTS: Right Kidney: 12.0 x 4.3 x 5.2 cm Left Kidney: 10.6 x 6.1 x 4.7 cm Right Kidney: prominent renal pelvis Left Kidney: no hydronephrosis or masses seen Bladder: wnl. No suspicious wall thickening or nodularity is identified on this ultrasound exam Bilateral Jets seen: yes IMPRESSION: 1. Normal renal ultrasound. 2. Urinary bladder as visualized on this ultrasound is unremarkable.
== END ==
LOC: RADUSWWP 07:18
PROVIDERS: ATTEND Urology
DX: D49.4 Neoplasm of unspecified behavior of bladder (principal)
CPT/HCPCS: 76770

== ENCOUNTER → 2022-01-18 | Outpatient (CLI) | payer MEDICARE, OTHER ==
--- NOTE | 2022-01-19 09:59 | CT ---
EXAMINATION TYPE: CT abdomen pelvis w con DATE OF EXAM: 01/18/2022 COMPARISON: CT dated 08/27/2017 HISTORY: Hx prostate ca, concerning for bladder ca CT DLP: 570.50 mGycm Automated exposure control for dose reduction was used. TECHNIQUE: Helical acquisition of images was performed from the lung bases through the pelvis. CONTRAST: Performed with Oral Contrast and with IV Contrast, patient injected with 100 mL of Isovue 300. FINDINGS: There is likely previous prostatectomy with multiple surgical clips in the pelvis. The previously hector cribed wall thickening of the urinary bladder is not appreciated today. No obvious urinary bladder ab normality. Stable multiple variable sized hepatic hypodensities likely representing cysts. No definit e hepatic focal lesion identified. Unremarkable gallbladder, pancreas, kidneys and adrenals. Stable tiny cyst at the posterior aspect of the spleen. Scattered arterial atherosclerotic calcifications. Unremarkable nondistended stomach, du odenum and small bowel. Moderate fecal loading of the colon with scattered uncomplicated colonic dive rticulosis. Mild wall thickening of the sigmoid colon, nonspecific, please correlate with coloscopy r esults. No progressive lymphadenopathy or sizable ascites. Bilateral inguinal densities, possibly related to previous inguinal hernia repair. Dilated right atrium, please correlate with echocardiographic result s. Unremarkable lung bases. Previous proximal right femoral fixation. Dextroscoliosis of the lumbar s pine with marked degenerative changes. No aggressive bone lesion. IMPRESSION: No evidence of local tumor recurrence or metastatic disease in the abdomen or the pelvis. Incidental findings as described above.
== END | disposition home or self-care (01) ==
LOC: RADCTMAIN 15:00
PROVIDERS: ATTEND Urology
DX: D73.4 Cyst of spleen (principal); K57.30 Diverticulosis of large intestine without perforation or abscess without bleeding; Z85.46 Personal history of malignant neoplasm of prostate
CPT/HCPCS: 82565; 84520; 74177; 36415; Q9967